=== PATIENT | female | born 1985 | race Caucasian/White ===

== ENCOUNTER 2018-01-16 00:28 | Inpatient (IN) | payer SELFPAY ==
[2018-01-16] MEDS ORDERED: 0.9 % SODIUM CHLORIDE 1,000 ML BAG IV ONE ×2 (00:35→01:58)
[2018-01-16] MEDS ORDERED: MORPHINE SULFATE 4MG/ML PREFILLED SYRINGE IVP ONE (00:35)
[2018-01-16] MEDS ORDERED: ONDANSETRON HCL IV 4 MG/2 ML VIAL IVP ONE (00:35)
[2018-01-16] MEDS ORDERED: FENTANYL PF 100MCG/2ML VIAL IVP ONE ×3 (00:54→05:10)
--- NOTE | 2018-01-16 00:55 | Emergency Department Record ---
History of Present Illness - General Chief Complaint: Abdominal Pain Stated Complaint: ABDOMINAL PAIN Time Seen by Provider: 01/16/18 00:30 Source: Patient Mode of Arrival: Ambulatory Limitations: No limitations - History of Present Illness Initial Comments: 32 yo female presents with abdominal pain, nausea and vomiting. She states about 10 days ago she developed sharp stabbing pain in the RUQ. She developed nausea and food intolerance. She developed a migraine at that time as well. She was seen [facility] ED yesterday. She had lab tests, US and CT scan of the abdomen. She states she had abnormal liver enzymes, dark brown urine. She states she was not given a formal diagnosis. Her migraine resolved. Her abdomen pain and nausea persisted then worsened. She does not drink, no current prescription medications, no Tylenol use. [facility] records demonstrate Alkaline phosphatase 323, Bilirubin of 3.3, AST of 169, ALT of 301, CRP of 6. WBC was 4.4, Plt were 117 Hemoglobin of 14.6. Negative HCG CT of the abdomen and pelvis was positive for moderate splenomegaly, Minimal ventral wall hernia US of the abdomen demonstrated hepatosplenomegaly with hepatocellular disease such as steatosis. PMHx is positive for migraines, Graves disease, obesity, depression, fibromyalgia PSHx C Section,D&C, T and A. Complaint: Abdominal pain Onset/Timin -: Days(s) Location: RUQ, RLQ Radiation: None Migration to: RUQ Severity: Severe Severity scale (1-10): 10 Quality: Sharp, Stabbing Consistency: Constant, Getting worse Improves With: Nothing Worsens With: Movement Context: Other Associated Symptoms: Nausea, Vomiting - Related Data LMP (females 10-50): Unknown Patient : No Home Medications Medication Instructions Recorded Confirmed Last Taken Levonorgestrel [Mirena] 1 each .ROUTE ASDIR 01/16/18 01/16/18 01/16/18 No Home Med [NO HOME MEDS] 01/16/18 01/16/18 Unknown Allergies Allergy/AdvReac Type Severity Reaction Status Date / Time acetaminophen [From [place]] AdvReac MIGRAINES Verified 01/16/18 00:41 hydrocodone [From [place]] AdvReac MIGRAINES Verified 01/16/18 00:41 morphine AdvReac VOMITING Verified 01/16/18 00:41 Travel Screening - Travel/Exposure Within Last 30 Days Have you traveled within the last 30 days?: No - Travel Symptoms Symptom Screening: Vomiting, Stomach Pain Review of Systems Constitutional: Denies: Chills, Fever, Malaise, Weakness Eyes: Denies: Eye discharge ENT: Denies: Congestion, Throat pain Respiratory: Denies: Cough, Dyspnea Cardiovascular: Denies: Chest pain, Syncope Endocrine: Denies: Fatigue Gastrointestinal: Reports: Abdominal pain, Nausea, Vomiting. Denies: Diarrhea, Hematemesis, Hematochezia Genitourinary: Denies: Dysuria, Urgency Musculoskeletal: Denies: Arthralgia, Back pain Skin: Denies: Bruising, Change in color, Rash Neurological: Reports: Headache. Denies: Numbness, Tingling, Weakness Psychiatric: Denies: Anxiety Hematological/Lymphatic: Denies: Easy bleeding, Easy bruising, Swollen glands Past Medical History - SOCIAL HISTORY Smoking Status: Current every day smoker Alcohol Use: None Drug Use: Occasional Drug Use Detail:: Marijuana - RESPIRATORY Hx Respiratory Disorders: No - CARDIOVASCULAR Hx Cardio Disorders: No - NEURO Hx Neuro Disorders: No - GI Hx GI Disorders: No - Hx Genitourinary Disorders: No - ENDOCRINE Hx Endocrine Disorders: Yes Hx Thyroid Disease: Yes (Graves) - MUSCULOSKELETAL Hx Musculoskeletal Disorders: Yes Hx Fibromyalgia: Yes - PSYCH Hx Psych Problems: No - HEMATOLOGY/ONCOLOGY Hx Hematology/Oncology Disorders: No Family Medical History Any Significant Family History?: No Physical Exam - General General Appearance: Alert, Oriented x3, Cooperative, No acute distress Limitations: No limitations - Head Head exam: Atraumatic, Normal inspection - Eye Eye exam: Normal appearance, PERRL, Scleral icterus (slight). negative: Conjunctival injection, Periorbital swelling - ENT ENT exam: Normal exam, Mucous membranes moist Ear exam: Normal external inspection Nasal Exam: Normal inspection Mouth exam: Normal external inspection Teeth exam: Normal inspection Throat exam: Normal inspection - Neck Neck exam: Normal inspection, Full ROM. negative: Tenderness - Respiratory Respiratory exam: Normal lung sounds bilaterally. negative: Respiratory distress - Cardiovascular Cardiovascular Exam: Regular rate, Normal rhythm, Normal heart sounds - GI/Abdominal GI/Abdominal exam: Soft, Normal bowel sounds, Tenderness (Tender RUQ otherwise soft obese abdomen) - Rectal Rectal exam: Deferred - exam: Deferred - Extremities Extremities exam: Normal inspection, Full ROM, Normal capillary refill. negative: Tenderness - Back Back exam: Reports: Normal inspection, Full ROM. Denies: Muscle spasm, Rash noted, Tenderness - Neurological Neurological exam: Alert, Normal gait, Oriented X3 - Psychiatric Psychiatric exam: Normal affect, Normal mood - Skin Skin exam: Dry, Intact, Normal color, Warm Course - Reevaluation(s) Reevaluation #1: [facility] records obtained and reviewed. 01/16/18 01:10 01/16/18 01:23 The CBC was reviewed. No acute changes The HCG was negative 01/16/18 01:48 The patient on recheck is still having pain. Repeat Fentanyl ordered. 01/16/18 02:23 Waiting for labs from [facility] as the analyzer is not working 01/16/18 02:51 The labs were reviewed AP is 306 down from 323 Bili is 3.1 down from 3.3 AST is 194 up from 164 ALT is 340 up from 301 With atypical lymphocytes, Positive MONO, splenomegally the symptoms are consistent with acute MONO. 01/16/18 03:01 On recheck the patient is still complaining of nausea, pain, and chills. She does not have a PCP. I recommend OBV for supportive care and recheck condition and labs. Medical Decision Making - Lab Data Result diagrams: 01/16/18 00:45 01/16/18 00:45 Disposition Disposition: Discharge Clinical Impression: Mononucleosis, Elevated liver enzymes Nausea & vomiting Qualifiers: Vomiting type: unspecified Vomiting Intractability: intractable Qualified Code( s): R11.2 - Nausea with vomiting, unspecified Disposition: Still a Patient at [facility] Decision to Admit: Admit from ER Decision to Admit Date: 01/16/18 Decision to Admit Time: 03:03 Condition: (2) Stable Forms: Patient Portal Access Time of Disposition: 03:03 Quality - Quality Measures Quality Measures: N/A - Blood Pressure Screening Does Patient Have Any of the Following: No Blood Pressure Classification: Normal BP Reading Systolic Measurement: 95 Diastolic Measurement: 53 Screening for High Blood Pressure: < Normal BP, F/U Not Required > [[id number]]
[2018-01-16 01:05] LABS: URINE APPEARANCE CLEAR; URINE BILIRUBIN MODERATE (NEGATIVE); URINE BLOOD NEGATIVE (NEGATIVE); URINE COLOR YELLOW; URINE GLUCOSE (UA) NEGATIVE (NEGATIVE); URINE KETONE NEGATIVE (NEGATIVE); URINE LEUKOCYTE ESTERASE SMALL (NEGATIVE); URINE NITRITE NEGATIVE (NEGATIVE)
[2018-01-16 01:06] LABS: HEMATOCRIT 40.3 % (35.0-47.0); MEAN CELL VOLUME 93.7 fl (81-97); MEAN CORPUSCULAR HEMOGLOBIN 32.6 pg (27-33); MEAN CORPUSCULAR HGB CONC 34.7 g/dl (32-36); MEAN PLATELET VOLUME 11.6 fl (7.4-10.4); PLATELET COUNT 164 K/uL (130-400); WHITE BLOOD COUNT W/O DIFF 5.9 K/uL (4.2-12.2)
[2018-01-16 01:17] LABS: URINE BACTERIA FEW; URINE RBC NONE SEEN (NONE SEEN)
[2018-01-16 01:24] LABS: PLATELET ESTIMATE NORMAL (NORMAL)
[2018-01-16 02:46] LABS: BLOOD UREA NITROGEN 9 mg/dL (6-20); CREATININE 0.8 mg/dL (0.5-0.9); EST GLOMERULAR FILTRATION RATE > 60 mL/min; GLUCOSE,RANDOM 110 mg/dL (74-109)
[2018-01-16 02:47] LABS: ALB/GLOB RATIO 0.8 (1.1-1.8); ALBUMIN 3.2 g/dL (4.0-5.0); ALKALINE PHOSPHATASE 306 U/L (35-104); ALT/SGPT 340 U/L (<33); AST/SGOT 194 U/L (10.0-35.0); LIPASE 32 U/L (13-60)
[2018-01-16] MEDS: FENTANYL PF 100MCG/2ML VIAL IVP SCH ×6 (03:47→21:57)
[2018-01-16] MEDS: 0.9 % SODIUM CHLORIDE 1000ML 1,000 ML IV PRN ×3 (03:59→19:57)
[2018-01-16] MEDS: ONDANSETRON HCL IV 4 MG/2 ML VIAL IVP PRN ×2 (08:20→22:32)
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
[2018-01-16] MEDS ORDERED: KETOROLAC 30 MG/ML VIAL IVP ONE ×2 (09:39→20:23)
[2018-01-16] MEDS: PANTOPRAZOLE SODIUM IV 40 MG VIAL IV SCH (10:12)
[2018-01-16] MEDS: PROCHLORPERAZINE 10 MG/2 ML VIAL IVP PRN (15:59)
[2018-01-16] MEDS: DOCUSATE SODIUM 100 MG CAPSULE PO PRN (21:58)
[2018-01-17] MEDS: FENTANYL PF 100MCG/2ML VIAL IVP SCH ×4 (02:50→13:40)
[2018-01-17] MEDS: 0.9 % SODIUM CHLORIDE 1000ML 1,000 ML IV PRN ×3 (05:00→22:02)
[2018-01-17 06:35] LABS: HEMATOCRIT 39.8 % (35.0-47.0); HEMOGLOBIN 13.2 gm/dl (11.6-16.0); MEAN CELL VOLUME 95.7 fl (81-97); MEAN CORPUSCULAR HEMOGLOBIN 31.7 pg (27-33); MEAN CORPUSCULAR HGB CONC 33.2 g/dl (32-36); MEAN PLATELET VOLUME 11.3 fl (7.4-10.4); PLATELET COUNT 154 K/uL (130-400); RED BLOOD COUNT 4.16 M/uL (3.80-5.40); RED CELL DISTRIBUTION WIDTH 15.8 % (11.5-14.5); WHITE BLOOD COUNT W/O DIFF 5.1 K/uL (4.2-12.2)
[2018-01-17 06:55] LABS: ALB/GLOB RATIO 0.9 (1.1-1.8); ALBUMIN 2.9 g/dL (4.0-5.0); ALKALINE PHOSPHATASE 304 U/L (35-104); ALT/SGPT 239 U/L (<33); AST/SGOT 124 U/L (10.0-35.0); BLOOD UREA NITROGEN 4 mg/dL (6-20); CHOLESTEROL 189 mg/dL (<200); CREATININE 0.6 mg/dL (0.5-0.9); EST GLOMERULAR FILTRATION RATE > 60 mL/min; GLUCOSE,RANDOM 83 mg/dL (74-109); HDL CHOLESTEROL 27 mg/dL (40-60); TOTAL PROTEIN 6.1 g/dL (6.6-8.7); TRIGLYCERIDES 196 mg/dL (<150); VLDL CHOLESTEROL 39 mg/dL (10.00-40.00)
[2018-01-17] MEDS: ONDANSETRON HCL IV 4 MG/2 ML VIAL IVP PRN ×3 (08:05→18:36)
--- NOTE | 2018-01-17 08:06 | Inpatient Certification ---
Inpatient Certification Admit to inpatient care: Based on my medical assessment, after consideration of patient's risk factors (age, co-morbidities and patient presenting symptoms and acuity), I expect that this patient will remain in the hospital greater than or equal to two midnights and that the services needed warrant inpatient care because: Metabolic derangement/dehydration I certify that my determination is in accordance with my understanding of Medicare requirements for reasonable and necessary inpatient services. 01/17/18 08:05
--- NOTE | 2018-01-17 08:48 | Physician Progress Note ---
Subjective - Date Date of Physician Progress Note: 01/17/18 - Subjective Subjective Comment: The patient reports feeling much better this morning. She is sitting up in bed and says that she is able to tolerate clear liquids but still has some nausea. Location: Abdomen Severity scale (1-10): 5 Quality: Aching Consistency: Intermittent Improves with: None Worsens with: None Associated symptoms: Nausea/vomiting Objective - Vital Signs Vital Signs: Vital Signs - Last 24 Hrs Temp Pulse Pulse Resp BP Pulse Ox 01/17/18 05:00 98.7 F 84 20 109/58 96 01/16/18 20:00 98.2 F 85 20 135/80 95 01/16/18 10:12 97.7 F 97 H 18 130/73 95 01/16/18 09:00 68 67 16 - General General Appearance: Alert, Oriented x3, Cooperative, No acute distress Limitations: No limitations - Head Head exam: Atraumatic, Normal inspection - Eye Eye exam: Normal appearance, PERRL, Scleral icterus (slight). negative: Conjunctival injection, Periorbital swelling - ENT ENT exam: Normal exam, Mucous membranes moist Ear exam: Normal external inspection Nasal Exam: Normal inspection Mouth exam: Normal external inspection Teeth exam: Normal inspection Throat exam: Normal inspection - Neck Neck exam: Normal inspection, Full ROM. negative: Tenderness - Respiratory Respiratory exam: Normal lung sounds bilaterally. negative: Respiratory distress - Cardiovascular Cardiovascular Exam: Regular rate, Normal rhythm, Normal heart sounds Peripheral Pulses: 3+: Radial (R), Radial (L), Dorsalis Pedis (R), Dorsalis Pedis (L) - GI/Abdominal GI/Abdominal exam: Soft, Normal bowel sounds, Tenderness (Tender RUQ otherwise soft obese abdomen) - Rectal Rectal exam: Deferred - exam: Deferred - Extremities Extremities exam: Normal inspection, Full ROM, Normal capillary refill. negative: Tenderness - Back Back exam: Reports: Normal inspection, Full ROM. Denies: Muscle spasm, Rash noted, Tenderness - Neurological Neurological exam: Alert, Normal gait, Oriented X3 - Psychiatric Psychiatric exam: Normal affect, Normal mood - Skin Skin exam: Dry, Intact, Normal color, Warm Assessment and Plan - Assessment and Plan (1) Nausea & vomiting Current Visit: Yes Status: Acute Qualifiers: Vomiting type: unspecified Vomiting Intractability: intractable Qualified Code(s): R11.2 - Nausea with vomiting, unspecified Base Code: R11.2 - NAUSEA WITH VOMITING, UNSPECIFIED Comment: 01/17/18 - intractable N/V x 7 days. - 2 liters Nacl bolused in ED. IVF w/ 0.9% Nacl at 125mL/hr, Zofran 4mg Q4H, Reglan 5mg IVP Q6H PRN - advance diet to clears and soft if tolerated. (2) Mononucleosis Current Visit: Yes Status: Acute Base Code: B27.90 - INFECTIOUS MONONUCLEOSIS, UNSPECIFIED WITHOUT COMPLICATION Comment: 01/17/18 - [place] spot test + - no sore throat, no lymphadenopathy/glandular swelling, no rash or fever. - CT abdomen/pelvis showing moderate splenomegaly. - continue to hydrate with IVF, bed rest, Tylenol 325mg Q4H PRN for fever. (3) Elevated liver enzymes Current Visit: Yes Status: Acute Base Code: R74.8 - ABNORMAL LEVELS OF OTHER SERUM ENZYMES Comment: 01/17/18 - elevated LFTs: AST 194-->124, ALT 340-->304 - likely as a result of fatty liver demonstrated on abdominal US and CT abdomen/ pelvis. No biliary obstructive stones or masses reported. - will repeat CMP, lipid panel and Hba1c, Hep panel, in the morning. May need HIDA scan and GI/Surgical consult. (4) Hyperbilirubinemia Current Visit: Yes Status: Acute Base Code: E80.6 - OTHER DISORDERS OF BILIRUBIN METABOLISM Comment: 01/17/18 - etiology is unclear. - pt has dark urine, but denies jaundice or change in skin tone. - Dx include: viral, cirrhosis, biliary stones/duct obstruction. - continue to trend labs. (5) Obesity, Class III, BMI 40-49.9 (morbid obesity) Current Visit: Yes Status: Acute Base Code: E66.01 - MORBID (SEVERE) OBESITY DUE TO EXCESS CALORIES Comment: 01/17/18 - morbidly obese - diet modification recommended. - Disposition Disposition: Improving symptomatically. D/C home and follow up with PCP if able to tolerate diet. Results - Labs Result Diagrams: 01/17/18 06:05 01/17/18 06:05 Labs Last 24 Hours: Laboratory Results - last 24 hr 01/17/18 01/17/18 01/17/18 06:05 06:05 06:05 WBC 5.1 RBC 4.16 Hgb 13.2 Hct 39.8 MCV 95.7 MCH 31.7 MCHC 33.2 RDW 15.8 H Plt Count 154 MPV 11.3 H Neutrophils % 13.0 L Band Neutrophils % 0.0 Eosinophils % Not Reportable Basophils % Not Reportable Lymphocytes 67.0 H Monocytes 14.0 H Basophils 5.0 Eosinophil Count 1.0 Sodium 143 Potassium 3.5 Chloride 103 Carbon Dioxide 25.0 Anion Gap 15.0 BUN 4 L Creatinine 0.6 Estimated GFR > 60 Random Glucose 83 Calcium 7.6 L Total Bilirubin 2.80 H AST 124 H ALT 239 H Alkaline Phosphatase 304 H Total Protein 6.1 L Albumin 2.9 L Globulin 3.2 Albumin/Globulin Ratio 0.9 L Triglycerides 196 H Cholesterol 189 LDL Cholesterol [place] 102.0 H VLDL Cholesterol 39 HDL Cholesterol 27 L HIV 1&2 Antibody Rapid Non reactive DVT/PE Assessment - Risk for VTE Risk for VTE: No Risk Level: Very Low Risk Assessment Date: 01/16/18 Risk Assessment Time: 08:54 VTE Orders Placed or Will Be Placed: No VTE Reason for No Prophylaxis: Not Indicated (pt ambulatory and has no other risk factors ) - Active Medicaitons Current Medications: Current Medications Docusate Sodium (Colace) 100 mg PO BID PRN PRN Reason: CONSTIPATION Last Admin: 01/16/18 21:58 Dose: 100 mg Fentanyl Citrate () 50 mcg IVP Q4H [facility] Last Admin: 01/17/18 06:02 Dose: 50 mcg Sodium Chloride () 1,000 mls @ 125 mls/hr IV .Q8H PRN PRN Reason: LARGE VOLUME IV Last Admin: 01/17/18 05:00 Dose: 125 mls/hr Ondansetron HCl (Zofran) 4 mg IVP Q4H PRN PRN Reason: NAUSEA Last Admin: 01/17/18 08:05 Dose: 4 mg Pantoprazole Sodium (Protonix Iv) 40 mg IV DAILY SOWMYA Last Admin: 01/16/18 10:12 Dose: 40 mg Prochlorperazine Edisylate (Compazine) 5 mg IVP Q4H PRN PRN Reason: NAUSEA Last Admin: 01/16/18 15:59 Dose: 5 mg AMI Plan - Labs Result Diagrams: 01/17/18 06:05 01/17/18 06:05
[2018-01-17] MEDS: PANTOPRAZOLE SODIUM IV 40 MG VIAL IV SCH (09:51)
[2018-01-17 17:05] LABS: HEP A AB IGM Nonreactive (Nonreactive); HEPATITIS B CORE ANTIBODY,IGM Nonreactive (Nonreactive); HEPATITIS B SURFACE ANTIGEN Nonreactive (Nonreactive); HEPATITIS C VIRUS ANTIBODY Nonreactive (Nonreactive)
[2018-01-17] MEDS ORDERED: KETOROLAC 30 MG/ML VIAL IVP ONE (18:44)
[2018-01-17] MEDS ORDERED: IBUPROFEN 600 MG TABLET PO PRN (19:12)
[2018-01-17] MEDS ORDERED: DIPHENHYDRAMINE HCL 25 MG CAPSULE PO ONE (22:07)
[2018-01-17] MEDS: PROCHLORPERAZINE 10 MG/2 ML VIAL IVP PRN (22:10)
[2018-01-17] MEDS: DOCUSATE SODIUM 100 MG CAPSULE PO PRN (22:12)
[2018-01-18] MEDS: 0.9 % SODIUM CHLORIDE 1000ML 1,000 ML IV PRN (06:20)
[2018-01-18 09:03] LABS: BLOOD UREA NITROGEN 3 mg/dL (6-20); CREATININE 0.6 mg/dL (0.5-0.9); EST GLOMERULAR FILTRATION RATE > 60 mL/min; GLUCOSE,RANDOM 89 mg/dL (74-109)
[2018-01-18] MEDS: PANTOPRAZOLE SODIUM IV 40 MG VIAL IV SCH (09:52)
[2018-01-18] MEDS: ONDANSETRON HCL IV 4 MG/2 ML VIAL IVP PRN (09:52)
--- NOTE | 2018-01-18 10:13 | Discharge Summary ---
Providers Discharge Summary Date: 01/18/18 Date of admission: 01/16/18 03:09 Attending physician: WENDY HARDWICK Physical Exam - Vital Signs Vital Signs: Vital Signs - Last 24 Hrs Temp Pulse Resp BP BP Pulse Ox 01/18/18 05:00 97.8 F 80 20 120/73 96 01/17/18 21:00 98.6 F 82 20 120/79 96 01/17/18 13:27 98.1 F 113/54 01/17/18 12:38 98.1 F 80 18 113/54 95 - General General Appearance: Alert, Oriented x3, Cooperative, No acute distress Limitations: No limitations - Head Head exam: Atraumatic, Normal inspection - Eye Eye exam: Normal appearance, PERRL, Scleral icterus (slight). negative: Conjunctival injection, Periorbital swelling - ENT ENT exam: Normal exam, Mucous membranes moist Ear exam: Normal external inspection Nasal Exam: Normal inspection Mouth exam: Normal external inspection Teeth exam: Normal inspection Throat exam: Normal inspection - Neck Neck exam: Normal inspection, Full ROM. negative: Tenderness - Respiratory Respiratory exam: Normal lung sounds bilaterally. negative: Respiratory distress - Cardiovascular Cardiovascular Exam: Regular rate, Normal rhythm, Normal heart sounds Peripheral Pulses: 3+: Radial (R), Radial (L), Dorsalis Pedis (R), Dorsalis Pedis (L) - GI/Abdominal GI/Abdominal exam: Soft, Normal bowel sounds, Tenderness (Tender RUQ otherwise soft obese abdomen) - Rectal Rectal exam: Deferred - exam: Deferred - Extremities Extremities exam: Normal inspection, Full ROM, Normal capillary refill. negative: Tenderness - Back Back exam: Reports: Normal inspection, Full ROM. Denies: Muscle spasm, Rash noted, Tenderness - Neurological Neurological exam: Alert, Normal gait, Oriented X3 - Psychiatric Psychiatric exam: Normal affect, Normal mood - Skin Skin exam: Dry, Intact, Normal color, Warm Hospitalization - Hospitalization Admission Diagnosis: Vomiting, abdominal pain, MONO - Problem List/Discharge Diagnosis (1) Nausea & vomiting Current Visit: Yes Status: Acute Discharge Diagnosis: Vomiting type: unspecified Vomiting Intractability: intractable Qualified Code(s): R11.2 - Nausea with vomiting, unspecified Base Code: R11.2 - NAUSEA WITH VOMITING, UNSPECIFIED Comment: 01/18/18 - intractable N/V x 7 days. - 2 liters Nacl bolused in ED. IVF w/ 0.9% Nacl at 125mL/hr, Zofran 4mg Q4H, Reglan 5mg IVP Q6H PRN - advance diet to clears and soft if tolerated. (2) Mononucleosis Current Visit: Yes Status: Acute Base Code: B27.90 - INFECTIOUS MONONUCLEOSIS, UNSPECIFIED WITHOUT COMPLICATION Comment: 01/18/18 - Starke spot test + - no sore throat, no lymphadenopathy/glandular swelling, no rash or fever. - CT abdomen/pelvis showing moderate splenomegaly. - continue to hydrate with IVF, bed rest, Tylenol 325mg Q4H PRN for fever. (3) Elevated liver enzymes Current Visit: Yes Status: Acute Base Code: R74.8 - ABNORMAL LEVELS OF OTHER SERUM ENZYMES Comment: 01/18/18 - elevated LFTs: AST 194-->124, ALT 340-->304 - likely as a result of fatty liver demonstrated on abdominal US and CT abdomen/ pelvis. No biliary obstructive stones or masses reported. - will repeat CMP, lipid panel and Hba1c, Hep panel, in the morning. May need HIDA scan and GI/Surgical consult. (4) Hyperbilirubinemia Current Visit: Yes Status: Acute Base Code: E80.6 - OTHER DISORDERS OF BILIRUBIN METABOLISM Comment: 01/18/18 - etiology is unclear. - pt has dark urine, but denies jaundice or change in skin tone. - Dx include: viral, cirrhosis, biliary stones/duct obstruction. - continue to trend labs. (5) Obesity, Class III, BMI 40-49.9 (morbid obesity) Current Visit: Yes Status: Acute Base Code: E66.01 - MORBID (SEVERE) OBESITY DUE TO EXCESS CALORIES Comment: 01/18/18 - morbidly obese - diet modification recommended. - Disposition Improving symptomatically. D/C home and follow up with PCP if able to tolerate diet. - Hospitalization Course Disposition: Home, Self-Care Hospital Course: Ms. Montes is a 32 y/o female who presents to the ED with a 10 day course of pain in the right upper abdomen followed by several days of nausea and vomiting. The patient has a history of migraine headaches and says that day before yesterday she developed a severe headache prompting her to go to [facility]. The patient describes having a full workup with abdominal scan an labs but was not really clear what her diagnosis was. She does however recall having abnormal liver enzymes and darkening of her urine. Labs obtained from [facility] show parked elevation in hepatic enzymes, alkaline phosphatase and inflammatory marker CRP. Since discharge from [facility] ED the patient has continued to have nausea and vomiting and she came in to [facility] ED. The patient has no history of alcohol abuse, infections, or long-term medication use. The patient is sexually active with multiple partners and is but in an open relationship. She is admitted for observation, hydration and monitoring of normalization of electrolytes. At bedside this morning the patient is awake, alert, oriented and does not appear to be in acute distress. 01/18: The patient's symptoms improved over the last 24 hours with decrease in abdominal pain and nausea. She has been receiving Toradol PRN for her pain but has not asked for any overnight. Repeat labs 01/17 did showed a trending down of liver enzymes and HIV screen was negative. The patient has not had any vomiting and is able to tolerate soft food with minimal discomfort. PCP: in [place] and she recently moved to [place]. Abnormal Labs: Abnormal Lab Results 01/16/18 01/16/18 01/16/18 Range/Units 00:35 00:45 00:45 RDW 15.0 H (11.5-14.5) % MPV 11.6 H (7.4-10.4) fl Neutrophils % 21.0 L (47-80) % Lymphocytes 63.0 H (16-45) % Monocytes 13.0 H (0-9) % Sodium 134 L (136-145) mmol/L Carbon Dioxide 20.0 L (22-29) mmol/L BUN (6-20) mg/dL Random Glucose 110 H (74-109) mg/dL Calcium 8.4 L (8.6-10.0) mg/dL Total Bilirubin 3.10 H (0.2-1.0) mg/dL AST 194 H (10.0-35.0) U/L ALT 340 H (<33) U/L Alkaline Phosphatase 306 H (35-104) U/L Total Protein (6.6-8.7) g/dL Albumin 3.2 L (4.0-5.0) g/dL Albumin/Globulin Ratio 0.8 L (1.1-1.8) Triglycerides (<150) mg/dL LDL Cholesterol Measurd (0-100) mg/dL HDL Cholesterol (40-60) mg/dL Urine Protein (NEGATIVE) Urine Bilirubin (NEGATIVE) Urine Urobilinogen (0.20 - 1.00) E.U./dL Ur Leukocyte Esterase (NEGATIVE) Monoscreen Positive H (NEGATIVE) 01/16/18 01/17/18 01/17/18 Range/Units 00:50 06:05 06:05 RDW 15.8 H (11.5-14.5) % MPV 11.3 H (7.4-10.4) fl Neutrophils % 13.0 L (47-80) % Lymphocytes 67.0 H (16-45) % Monocytes 14.0 H (0-9) % Sodium (136-145) mmol/L Carbon Dioxide (22-29) mmol/L BUN 4 L (6-20) mg/dL Random Glucose (74-109) mg/dL Calcium 7.6 L (8.6-10.0) mg/dL Total Bilirubin 2.80 H (0.2-1.0) mg/dL AST 124 H (10.0-35.0) U/L ALT 239 H (<33) U/L Alkaline Phosphatase 304 H (35-104) U/L Total Protein 6.1 L (6.6-8.7) g/dL Albumin 2.9 L (4.0-5.0) g/dL Albumin/Globulin Ratio 0.9 L (1.1-1.8) Triglycerides 196 H (<150) mg/dL LDL Cholesterol Measurd 102.0 H (0-100) mg/dL HDL Cholesterol 27 L (40-60) mg/dL Urine Protein 30 mg/dl H (NEGATIVE) Urine Bilirubin Moderate H (NEGATIVE) Urine Urobilinogen 4.0 H (0.20 - 1.00) E.U./dL Ur Leukocyte Esterase Small H (NEGATIVE) Monoscreen (NEGATIVE) 01/18/18 Range/Units 06:23 RDW (11.5-14.5) % MPV (7.4-10.4) fl Neutrophils % (47-80) % Lymphocytes (16-45) % Monocytes (0-9) % Sodium (136-145) mmol/L Carbon Dioxide (22-29) mmol/L BUN 3 L (6-20) mg/dL Random Glucose (74-109) mg/dL Calcium 7.8 L (8.6-10.0) mg/dL Total Bilirubin (0.2-1.0) mg/dL AST (10.0-35.0) U/L ALT (<33) U/L Alkaline Phosphatase (35-104) U/L Total Protein (6.6-8.7) g/dL Albumin (4.0-5.0) g/dL Albumin/Globulin Ratio (1.1-1.8) Triglycerides (<150) mg/dL LDL Cholesterol Measurd (0-100) mg/dL HDL Cholesterol (40-60) mg/dL Urine Protein (NEGATIVE) Urine Bilirubin (NEGATIVE) Urine Urobilinogen (0.20 - 1.00) E.U./dL Ur Leukocyte Esterase (NEGATIVE) Monoscreen (NEGATIVE) Condition at Discharge: (2) Stable Discharge Medications - Discharge Medications Prescriptions: Ibuprofen [Motrin 600Mg] 600 mg PO Q6H PRN #20 tablet PRN Reason: Abdominal Pain Ondansetron HCl [Zofran] 4 mg PO Q6H PRN #14 tablet PRN Reason: Nausea/Vomiting Home Medications: Ambulatory Orders Levonorgestrel [Mirena] 1 each .ROUTE ASDIR 01/16/18 [Last Taken 01/16/18] Ibuprofen [Motrin 600Mg] 600 mg PO Q6H PRN #20 tablet 01/18/18 [Last Taken Unknown] Ondansetron HCl [Zofran] 4 mg PO Q6H PRN #14 tablet 01/18/18 [Last Taken Unknown ] Discharge Plan - Discharge Instructions Activity at Discharge: Increase Activity as Tolerated Diet at Discharge: Advance to Usual Diet Additional Instructions: Continue to advance diet starting with softs. Establish care with [facility] (pt given new patient packet) or in [place] where she has already initiated the process. Repeat CMP to be ordered by PCP Pain medication and nausea medication have been sent to your pharmacy If there is any return of acute pain or nausea/vomiting please go to the nearest ED. Advise rest, hydration and avoidance of physical activity for another 7-10 days. Will provide work absence note. Quality Measures - Quality Measures Quality Measures: Documentation of Current Medications in Medical Record, Screening for High Blood Pressure and F/U Documented - Current Medications Quality Measure: Measure #130: Documentation of Current Medications Documentation of Current Medications: <Current Medications Documented/Reviewed> [G8427] - Blood Pressure Screening Quality Measure: Screening for High Blood Pressure and Follow-Up Documented Does Patient Have Any of the Following: No Blood Pressure Classification: Normal BP Reading Systolic Measurement: 113 Diastolic Measurement: 54 Screening for High Blood Pressure: < Normal BP, F/U Not Required > [G8783] - Elder Abuse Suspicion Index EASI Reference Information: Kandice HEIN, Bala C, Suman Stoddard, Fany Hankins.Development and validation of a tool to assist physicians identification of elder abuse: The Elder Abuse Suspicion Index (EASI ). Journal of Elder Abuse and Neglect, 2008; 20 (3): 276-300.
== END 2018-01-18 15:15 | disposition home or self-care (01) | DRG 392 ==
LOC: ER 00:28 → OBSVTOIN 03:09 → MEDSURG 03:09
PROVIDERS: ADMIT Internal Medicine; ATTEND Internal Medicine
DX: R11.2 Nausea with vomiting, unspecified (principal); B27.90 Infectious mononucleosis, unspecified without complication; R74.8 Abnormal levels of other serum enzymes; E80.6 Other disorders of bilirubin metabolism; G43.909 Migraine, unspecified, not intractable, without status migrainosus; E66.01 Morbid (severe) obesity due to excess calories; E05.00 Thyrotoxicosis with diffuse goiter without thyrotoxic crisis or storm; M79.7 Fibromyalgia; M19.90 Unspecified osteoarthritis, unspecified site; F17.210 Nicotine dependence, cigarettes, uncomplicated
CPT/HCPCS: 80048; 80053; 80061; 81001; 83690; 84703; 85027; 86308; 86705; 86803; 87340; 87390; 96361; 96374; 96375; 96376; 99223; 99233; 99239; 99285; C9113; J0780; J1885; J2405; J7030

== ENCOUNTER 2019-08-14 20:50 | Emergency (ER) | payer MEDICAID ==
[2019-08-14] MEDS ORDERED: KETOROLAC 60 MG/2 ML VIAL IM STA (21:14)
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
--- NOTE | 2019-08-14 21:58 | CT SCAN REPORT ---
EXAMINATION: CT Lumbar Spine without Contrast EXAM DATE: 08/14/2019 9:52 PM TECHNIQUE: Standard protocol CT images were performed of the lumbar spine without contrast. Sagittal and coronal 2-D images were reconstructed. INDICATION: low back pain, injury COMPARISON: None ENCOUNTER: Not applicable FINDINGS: There is normal lumbar alignment, vertebral body height, and disc height. The paraspinal soft tissues are unremarkable. No fractures are present. Hepatic hypoattenuation consistent with fatty liver infiltration. Mild degenerative changes of bilateral sacroiliac joints. L1-2: Unremarkable. L2-3: Unremarkable. L3-4: Unremarkable. L4-5: Unremarkable. L5-S1: Unremarkable. IMPRESSION: 1. No fracture. Modic malalignment. 2. No significant central canal or foraminal stenosis. 3. Fatty liver infiltration Dictated by: ROSIE BIGGS MD on 08/14/2019 9:52 PM. .
== END 2019-08-14 22:33 | disposition home or self-care (01) ==
LOC: ER 20:50
DX: S30.0XXA Contusion of lower back and pelvis, initial encounter (principal); W00.0XXA Fall on same level due to ice and snow, initial encounter; Y92.009 Unspecified place in unspecified non-institutional (private) residence as the place of occurrence of the external cause; F17.210 Nicotine dependence, cigarettes, uncomplicated
CPT/HCPCS: 72131; 99284; J1885